=== PATIENT | male | born 1945 | race Caucasian/White ===

== ENCOUNTER → 2019-05-17 | Outpatient (CLI) | payer BC ==
[2019-05-17 11:21] LABS: HEMATOCRIT 51.7 % (42.0-52.0); HEMOGLOBIN 16.9 g/dL (13.5-18.0)
== END ==
LOC: LAB 11:04
PROVIDERS: Urology
DX: E66.3 Overweight (principal); R53.82 Chronic fatigue, unspecified; F52.21 Male erectile disorder; G47.00 Insomnia, unspecified; R68.82 Decreased libido; E29.1 Testicular hypofunction